=== PATIENT | female | born 1980 | race African-American/Black ===

== ENCOUNTER 2024-09-10 09:07 | Emergency (ER) | payer SELFPAY ==
[2024-09-10] MEDS ORDERED: Ibuprofen 200 MG TAB ONE (11:42)
== END 2024-09-10 11:50 | disposition home or self-care (01) ==
LOC: CSHERS 09:07
DX: B34.9 Viral infection, unspecified (principal); I10 Essential (primary) hypertension
CPT/HCPCS: 87428; 99283